=== PATIENT | female | born 1950 | race Caucasian/White ===

== ENCOUNTER → 2021-11-01 16:23 | Outpatient (BNVA) | payer MEDICARE, MEDICAID, SELFPAY | PROVIDERS: Family Provider Nurse Practitioner; PCP Nurse Practitioner; Visit Provider Emergency Medicine | DX: R39.15 Urgency of urination (principal) | CPT/HCPCS: 81000 ==

== ENCOUNTER → 2022-06-30 09:06 | Outpatient (BNVA) | payer MEDICARE, MEDICAID, SELFPAY | PROVIDERS: Visit Provider Nurse Practitioner Family | DX: R30.0 Dysuria (principal); N30.01 Acute cystitis with hematuria; I10 Essential (primary) hypertension | CPT/HCPCS: 81000; 87077; 87086; 87184 ==